=== PATIENT | female | born 1960 | race Two or more races ===

== ENCOUNTER 2022-03-07 13:11 | Emergency (ER) | payer OTHER ==
[~2022-03-07] VITALS: Ht 144.8 cm; Wt 72.6 kg
[2022-03-07 13:52] VITALS: BP 134/80
[2022-03-07] MEDS ORDERED: GABA300C PO (14:15)
--- NOTE | 2022-03-07 14:22 | NUR ---
seen and examined by dr vázquez. Patient discharged to home in stable condition. Written and verbal after care instructions given. Patient verbalizes understanding of instruction.
== END 2022-03-07 14:24 | disposition home or self-care (01) ==
LOC: ER 13:21
DX: M19.042 Primary osteoarthritis, left hand (principal); M19.041 Primary osteoarthritis, right hand